=== PATIENT | female | born 1980 | race Caucasian/White ===

== ENCOUNTER 2019-07-28 05:50 | Emergency (ER) | payer SELFPAY ==
[~2019-07-28] VITALS: Ht 152.4 cm; Wt 68.2 kg
[2019-07-28 06:54] LABS: BILIRUBIN,URINE NEGATIVE (NEG); CLARITY,URINE CLEAR; COLOR,URINE YELLOW; NITRITE,URINE NEGATIVE (NEG); PROTEIN,URINE NEGATIVE (NEG-TRACE); UROBILINOGEN,URINE 0.2 mg/dL (0.2 mg/dL)
--- NOTE | 2019-07-28 06:54 | PHYS DOC ---
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 Patient states she didn't feel good for the last 48 hours and was sleeping all day. Patient complaining of generalized weakness with fuggy thinking and confusion with left upper extremity pain as a constant pain. Patient states she did not have any numbness of her arm yesterday morning and sleeping all day and last night had some numbness in her left arm. Patient states she had left arm numbness since this morning as a constant numbness without weakness. Patient states she has had chronic bilateral lower extremity weakness without change. Patient also complaining of numbness in left side of her face since this morning. Patient complaining of blurred vision without double vision and hurting all over. Patient denies cough, fever and chills, diarrhea and constipation. Patient states she didn't urinate like her usual last couple days and thinks she is dehydrated. Patient states she was in by her neurosurgeon [facility] about one year ago and had unremarkable CT of her brain. Review of Systems Review of Systems Constitutional: Denies fever or chills [] Eyes: Denies change in visual acuity, redness, or eye pain [] HENT: Denies nasal congestion or sore throat [] Respiratory: Denies cough or shortness of breath [] Cardiovascular: No additional information not addressed in HPI [] GI: Denies abdominal pain, nausea, vomiting, bloody stools or diarrhea [] : Denies dysuria or hematuria [] Musculoskeletal: Denies back pain or joint pain [] Integument: Denies rash or skin lesions [] Neurologic: Denies headache, focal weakness, reports sensory changes [] Endocrine: Denies polyuria or polydipsia [] All other systems were reviewed and found to be within normal limits, except as documented in this note. Current Medications Current Medications Current Medications Medications (Trade) Dose Ordered Sig/Gabriella Start Time Stop Time Status Last Admin Dose Admin Sodium Chloride 1,000 ml @ 1,000 mls/hr Q1H 07/28/19 07:00 07/28/19 07:59 DC 07/28/19 07:23 1,000 MLS/HR Allergies Allergies Allergies Coded Allergies Type Severity Reaction Last Updated Verified lorazepam Allergy Intermediate 07/28/19 Yes tramadol Allergy Intermediate 07/28/19 Yes Physical Exam Physical Exam Constitutional: Well developed, well nourished, mild distress, non-toxic appear ance. [] HENT: Normocephalic, atraumatic, bilateral external ears normal, oropharynx moist, no oral exudates, nose normal. [] Eyes: PERRLA, EOMI, conjunctiva normal, no discharge. [] Neck: Normal range of motion, no tenderness, supple, no stridor. [] Cardiovascular:Heart rate regular rhythm, no murmur [] Lungs & Thorax: Bilateral breath sounds clear to auscultation [] Abdomen: Bowel sounds normal, soft, no tenderness, no masses, no pulsatile masses. [] Skin: Warm, dry, no erythema, no rash. [] Back: No tenderness, no CVA tenderness. [] Extremities: No tenderness, no cyanosis, no clubbing, ROM intact, no edema. [] Neurologic: Alert and oriented X 3, normal motor function, subjective decreased sensation of left-sided face and left arm, no focal deficits noted. NIHS-1. Psychologic: Affect normal, judgement normal, mood normal. [] Current Patient Data Vital Signs Vital Signs Date Time Temp Pulse Resp B/P (MAP) Pulse Ox O2 Delivery O2 Flow Rate FiO2 07/28/19 08:27 72 18 155/99 (117) 100 Room Air 07/28/19 06:05 98.2 98.2 Lab Values Laboratory Tests Test 07/28/19 05:57 07/28/19 05:59 07/28/19 06:16 07/28/19 06:57 Urine Collection Type Void Urine Color Yellow Urine Clarity Clear Urine pH 6.0 Urine Specific Sargent 1.020 Urine Protein Negative mg/dL (NEG-TRACE) Urine Glucose (UA) Negative mg/dL (NEG) Urine Ketones (Stick) Negative mg/dL (NEG) Urine Blood Trace (NEG) Urine Nitrite Negative (NEG) Urine Bilirubin Negative (NEG) Urine Urobilinogen Dipstick 0.2 mg/dL (0.2 mg/dL) Urine Leukocyte Esterase Small (NEG) Urine RBC 3-5 /HPF (0-2) Urine WBC 5-10 /HPF (0-4) Urine Squamous Epithelial Cells Many /LPF Urine Bacteria Many /HPF (0-FEW) Urine Mucus Marked /LPF Urine Opiates Screen Neg (NEG) Urine Methadone Screen Neg (NEG) Urine Barbiturates Neg (NEG) Urine Phencyclidine Screen Neg (NEG) Urine Amphetamine/Methamphetamine Pos (NEG) Urine Benzodiazepines Screen Neg (NEG) Urine Cocaine Screen Neg (NEG) Urine Cannabinoids Screen Neg (NEG) Urine Ethyl Alcohol Neg (NEG) POC Urine HCG, Qualitative Hcg negative (Negative) Glucose (Fingerstick) 85 mg/dL (70-99) Prothrombin Time 13.0 SEC (11.7-14.0) Prothrombin Time INR 1.0 (0.8-1.1) Sodium Level 139 mmol/L (136-145) Potassium Level 4.0 mmol/L (3.5-5.1) Chloride Level 106 mmol/L (98-107) Carbon Dioxide Level 25 mmol/L (21-32) Anion Gap 8 (6-14) Blood Urea Nitrogen 10 mg/dL (7-20) Creatinine 0.8 mg/dL (0.6-1.0) Estimated GFR (Cockcroft-Gault) 79.4 BUN/Creatinine Ratio 13 (6-20) Glucose Level 91 mg/dL (70-99) Calcium Level 8.4 mg/dL (8.5-10.1) L Magnesium Level 1.8 mg/dL (1.8-2.4) Total Bilirubin 0.2 mg/dL (0.2-1.0) Aspartate Amino Transferase (AST) 17 U/L (15-37) Alanine Aminotransferase (ALT) 16 U/L (14-59) Alkaline Phosphatase 84 U/L (46-116) Creatine Kinase 54 U/L (26-192) Troponin I Quantitative < 0.017 ng/mL (0.000-0.055) Total Protein 6.6 g/dL (6.4-8.2) Albumin 3.2 g/dL (3.4-5.0) L Albumin/Globulin Ratio 0.9 (1.0-1.7) L Test 07/28/19 07:25 07/28/19 07:26 Influenza Type A Antigen Negative (NEGATIVE) Influenza Type B Antigen Negative (NEGATIVE) White Blood Count 6.4 x10^3/uL (4.0-11.0) Red Blood Count 4.81 x10^6/uL (3.50-5.40) Hemoglobin 14.1 g/dL (12.0-15.5) Hematocrit 41.1 % (36.0-47.0) Mean Corpuscular Volume 85 fL (79-100) Mean Corpuscular Hemoglobin 29 pg (25-35) Mean Corpuscular Hemoglobin Concent 34 g/dL (31-37) Red Cell Distribution Width 14.2 % (11.5-14.5) Platelet Count 301 x10^3/uL (140-400) Neutrophils (%) (Auto) 67 % (31-73) Lymphocytes (%) (Auto) 24 % (24-48) Monocytes (%) (Auto) 8 % (0-9) Eosinophils (%) (Auto) 2 % (0-3) Basophils (%) (Auto) 0 % (0-3) Neutrophils # (Auto) 4.2 x10^3/uL (1.8-7.7) Lymphocytes # (Auto) 1.5 x10^3/uL (1.0-4.8) Monocytes # (Auto) 0.5 x10^3/uL (0.0-1.1) Eosinophils # (Auto) 0.1 x10^3/uL (0.0-0.7) Basophils # (Auto) 0.0 x10^3/uL (0.0-0.2) Lactic Acid Level 1.1 mmol/L (0.4-2.0) KV-Kkd-H-Type Natriuretic Peptide 61 pg/mL (0-124) Laboratory Tests 07/28/19 07:26 Laboratory Tests 07/28/19 06:57 EKG EKG [] Radiology/Procedures Radiology/Procedures [facility] [address] [place] [address] IMAGING REPORT Signed PATIENT: JAVIER PERRY MACCOUNT: [id number] : 1980 LOCATION: ER AGE: 38 SEX: F EXAM STATUS: REG ER ORD. PHYSICIAN: ANDRES MILLS MD REASON: left arm numbness PROCEDURE: PORTABLE CHEST 1V PORTABLE CHEST 1V Clinical Indication: Left arm numbness. Comparison: None. Findings: The cardiomediastinal silhouette is normal. Linear opacity in the right midlung may be discoid atelectasis. Lungs are otherwise clear. There is no pneumothorax. No pleural effusion is appreciated. No acute bone abnormality. IMPRESSION: Minimal discoid atelectasis in the right midlung. Electronically signed by: Amol Alatorre MD (07/28/2019 7:05 AM) [id number] DICTATED and SIGNED BY: AMOL ALATORRE MD DATE: 07/28/19 0705 [facility] [address] [place] [address] IMAGING REPORT Signed PATIENT: JAVIER PERRY MACCOUNT: [id number] : 1980 LOCATION: ER AGE: 38 SEX: F EXAM STATUS: REG ER ORD. PHYSICIAN: ANDRES MILLS MD REASON: arm numbness PROCEDURE: CT HEAD WO CONTRAST CT head without contrast dated 07/28/2019. No comparison available. CLINICAL INDICATION: Arm numbness. Fatigue. Double vision. History of brain tumor. TECHNIQUE: Contiguous axial imaging the head was performed from skull base to vertex. No contrast administered. One or more of the following individualized dose reduction techniques were utilized for this examination: 1. Automated exposure control 2. Adjustment of the mA and/or kV according to patient size 3. Use of iterative reconstruction technique FINDINGS: Ventricles and sulci are within normal limits for age. No midline shift or mass effect. There is evidence of prior right frontotemporal craniotomy with small zone of encephalomalacia in the right frontal lobe. Brain parenchyma is otherwise of normal attenuation. No hemorrhage or extra-axial collection. Posterior fossa and brainstem unremarkable. Minimal mucosal thickening of the ethmoid and left maxillary sinuses. Mastoid air cells are clear. No acute calvarial abnormality. IMPRESSION: 1. No evidence of acute intracranial hemorrhage or mass. 2. Status post right frontotemporal craniotomy with small zone of encephalomalacia in the right frontal lobe. Electronically signed by: Rg Sarmiento MD (07/28/2019 7:51 AM) [id number] DICTATED and SIGNED BY: RG SARMIENTO MD DATE: 07/28/19 0751 Course & Med Decision Making Course & Med Decision Making Pertinent Labs and Imaging studies reviewed. (See chart for details) Evaluation of patient in ER showed 38-year-old female patient with history of brain tumor or surgery and complaining of not feeling good for a few days and left arm numbness for unknown time that getting worse today. Patient had mild subjective paresthesias of left upper extremity and left side of face. And had unremarkable labs and CT head and chest x-ray except for positive UDS for amphetamine and patient denied using any amphetamines. The patient has a mild UTI. Patient was advised to follow-up with neurologist and neurosurgeon for further evaluation. I've spoken with the patient and/or caregivers. I've explained the patient's condition, diagnosis and treatment plan based on information available to me at this time. I've answered the patient's and/or caregivers questions and addressed any concerns. The patient and/or caregivers have a good understanding the patient's diagnosis, condition and treatment plan as can be expected at this point. Vital signs have been stabilized. The patient's condition is stable for discharge from the emergency department. The patient will pursue further outpatient evaluation with her primary care provider or other designated consulting physician as outlined in the discharge instructions. Patient and/or caregivers are agreeable to this plan of care and follow-up instructions have been explained in detail. The patient and/or caregivers have received these instructions in written format and expressed understanding of these discharge instructions. The patient and her caregivers are aware that if any significant change in condition or worsening of symptoms should prompt him to immediately return to this of the closest emergency department. If an emergent department is not readily available I would encourage him to call 911. Papa Disclaimer Papa Disclaimer This electronic medical record was generated, in whole or in part, using a voice recognition dictation system. Departure Departure Impression: Primary Impression: Paresthesia Additional Impressions: UTI (urinary tract infection) Positive urine drug screen Generalized weakness Disposition: HOME, SELF-CARE (at 0815) Condition: STABLE Referrals: NO PCP (PCP) Patient Instructions: Paresthesia, Urinary Tract Infection Additional Instructions: Drink plenty of liquids Follow-up with your primary care physician in 3-5 days Return to ER if not getting better Follow-up with your neurologist and neurosurgeon Thank you for visiting [facility]. We appreciate you trusting us with your care. If any additional problems come up don't hesitate to return to visit us. Please follow up with your primary care provider so they can plan additional care if needed and know about the problem that you had. If symptoms worsen come back to the Emergency Department. Any concerning symptoms that start such as chest pain, shortness of air, weakness or numbness on one side of the body, running high fevers or any other concerning symptoms return to the ER. Scripts Ciprofloxacin Hcl (CIPRO) 250 Mg Tablet 1 TAB PO BID for infection, #6 TAB Prov: ANDRES MILLS MD 07/28/19 Thiamine Hcl (VITAMIN B-1) 100 Mg Tablet 1 TAB PO DAILY for 30 Days, #30 TAB 0 Refills Prov: ANDRES MILLS MD 07/28/19 NIHSS Stroke Scale NIH Stroke Scale: NIH Stroke Scale Response (Comments) Value Level of Consciousness: 0 Alert/Responsive 0 LOC Questions: 0 Answers both correctly 0 LOC Commands: 0 Performs both tasks 0 Best Gaze: 0 Normal 0 Visual: 0 No visual loss 0 Facial Palsy: 0 Normal, symmetrical 0 Motor - Left Arm 0 No drift 0 Motor - Right Arm 0 No drift 0 Motor - Left Leg 0 No drift 0 Motor: Right Leg 0 No drift 0 Limb Ataxia: 0 Absent 0 Sensory: 1 Mid to moderate loss 1 Best Language: 0 Normal 0 Dysathria: 0 Normal 0 Extinction and Inattention: 0 Normal 0 Total 1 Problem Qualifiers Additional Impressions: UTI (urinary tract infection) Urinary tract infection type: site unspecified Hematuria presence: with hematuria Qualified Codes: N39.0 - Urinary tract infection, site not specified; R31.9 - Hematuria, unspecified ANDRES MILLS MD Jul 28, 2019 06:54
[2019-07-28] MEDS ORDERED: IV NORMAL SALINE 1000ML BAG 1,000 ML IV SCH (07:00)
[2019-07-28 07:03] LABS: BACTERIA,URINE MANY /HPF (0-FEW); SQUAMOUS EPITHELIAL CELL,UR MANY /LPF
--- NOTE | 2019-07-28 07:08 | RAD ---
PORTABLE CHEST 1V Clinical Indication: Left arm numbness. Comparison: None. Findings: The cardiomediastinal silhouette is normal. Linear opacity in the right midlung may be discoid atelectasis. Lungs are otherwise clear. There is no pneumothorax. No pleural effusion is appreciated. No acute bone abnormality. IMPRESSION: Minimal discoid atelectasis in the right midlung. Electronically signed by: Amol Alatorre MD (07/28/2019 7:05 AM) [id number]
[2019-07-28 07:16] LABS: BARBITURATES NEG (NEG); BENZODIAZEPINES NEG (NEG); CANNABINOIDS NEG (NEG); COCAINE NEG (NEG); METHADONE NEG (NEG); OPIATES NEG (NEG); PHENCYCLIDINE NEG (NEG)
[2019-07-28 07:17] LABS: AMPHETAMINE/METHAMPHETAMINE POS (NEG)
[2019-07-28 07:17] LABS: CALCIUM 8.4 mg/dL (8.5-10.1); CREATININE 0.8 mg/dL (0.6-1.0); GFR 79.4
[2019-07-28 07:23] LABS: ALBUMIN 3.2 g/dL (3.4-5.0); ALBUMIN/GLOBULIN RATIO 0.9 (1.0-1.7); MAGNESIUM 1.8 mg/dL (1.8-2.4); TOTAL BILIRUBIN 0.2 mg/dL (0.2-1.0); TOTAL PROTEIN 6.6 g/dL (6.4-8.2)
[2019-07-28 07:53] LABS: BASO % 0 % (0-3); EOS # 0.1 x10^3/uL (0.0-0.7); EOS % 2 % (0-3); HEMATOCRIT 41.1 % (36.0-47.0); HEMOGLOBIN 14.1 g/dL (12.0-15.5); LYMPH # 1.5 x10^3/uL (1.0-4.8); LYMPH % 24 % (24-48); MEAN CORPUSCULAR HEMOGLOBIN 29 pg (25-35); MEAN CORPUSCULAR HGB CONC 34 g/dL (31-37); MEAN CORPUSCULAR VOLUME 85 fL (79-100); MONO # 0.5 x10^3/uL (0.0-1.1); MONO % 8 % (0-9); NEUT # 4.2 x10^3/uL (1.8-7.7); NEUT % 67 % (31-73); PLATELET COUNT 301 x10^3/uL (140-400); RED BLOOD COUNT 4.81 x10^6/uL (3.50-5.40); RED CELL DISTRIBUTION WIDTH 14.2 % (11.5-14.5); WHITE BLOOD COUNT 6.4 x10^3/uL (4.0-11.0)
--- NOTE | 2019-07-28 07:54 | RAD ---
CT head without contrast dated 07/28/2019. No comparison available. CLINICAL INDICATION: Arm numbness. Fatigue. Double vision. History of brain tumor. TECHNIQUE: Contiguous axial imaging the head was performed from skull base to vertex. No contrast administered. One or more of the following individualized dose reduction techniques were utilized for this examination: 1. Automated exposure control 2. Adjustment of the mA and/or kV according to patient size 3. Use of iterative reconstruction technique FINDINGS: Ventricles and sulci are within normal limits for age. No midline shift or mass effect. There is evidence of prior right frontotemporal craniotomy with small zone of encephalomalacia in the right frontal lobe. Brain parenchyma is otherwise of normal attenuation. No hemorrhage or extra-axial collection. Posterior fossa and brainstem unremarkable. Minimal mucosal thickening of the ethmoid and left maxillary sinuses. Mastoid air cells are clear. No acute calvarial abnormality. IMPRESSION: 1. No evidence of acute intracranial hemorrhage or mass. 2. Status post right frontotemporal craniotomy with small zone of encephalomalacia in the right frontal lobe. Electronically signed by: Rg Sarmiento MD (07/28/2019 7:51 AM) [id number]
--- NOTE | 2019-07-28 07:58 | EKG ---
[facility] [address] [place] [address] Test Date: 2019-07-28 Test Time: 06:12:19 Pat Name: JAVIER PERRY Department: Room: Gender: F [employer]: : 1980 Requested By: ANDRES MILLS Order Number: [id number] Reading MD: Measurements Intervals [place] Rate: 71 P: 24 SD: 124 QRS: 24 QRSD: 80 T: 16 QT: 404 QTc: 443 Interpretive Statements SINUS RHYTHM NORMAL ECG No previous ECG available for comparison
[2019-07-28 08:01] LABS: INFLUENZA A PATIENT NEGATIVE (NEGATIVE); INFLUENZA B PATIENT NEGATIVE (NEGATIVE)
[2019-07-28] MEDS ORDERED: THIA100T57 PO (08:17)
[2019-07-28] MEDS ORDERED: CIPR250T30 PO (08:17)
[2019-07-28 08:27] VITALS: BP 155/99
== END 2019-07-28 08:27 | disposition home or self-care (01) ==
LOC: ER 05:50
DX: N39.0 Urinary tract infection, site not specified (principal); R31.9 Hematuria, unspecified; R20.0 Anesthesia of skin; R55 Syncope and collapse; R53.1 Weakness; R82.5 Elevated urine levels of drugs, medicaments and biological substances; E11.9 Type 2 diabetes mellitus without complications; I10 Essential (primary) hypertension; Z98.51 Tubal ligation status; Z98.890 Other specified postprocedural states
CPT/HCPCS: 36415; 70450; 71045; 80053; 80307; 81001; 81025; 82550; 82962; 83605; 83735; 83880; 84484; 85025; 85610; 87086; 87804; 93005; 96360; 99285; J7030

== ENCOUNTER 2020-07-31 11:44 | Emergency (ER) | payer SELFPAY ==
[~2020-07-31 11:44] MED LIST: CIPR250T30 PO; THIA100T57 PO
--- NOTE | 2020-07-31 16:18 | PHYS DOC ---
Past Medical History Past Medical History: Diabetes-Type II, Hypertension, Other Additional Past Medical Histor: BRAIN TUMORS, VASCULAR NECROSIS OF BILATERAL LEGS Past Surgical History: Tubal ligation, Other Additional Past Surgical Histo: BRAIN TUMOR REMOVAL, BLADDER SURGERY Smoking Status: Never Smoker Alcohol Use: None General Adult HPI: HPI: Patient is a 39 year old female presents to the emergency department stating her primary care doctor Nina EMANUEL sent her here to have an MRI and to be admitted. Patient said that she seen him last and he recommended admi ssion to the hospital but she needed to go see her grandsons birthday instead, stating that he said this was okay and when she came back in the town to come to the hospital to be admitted. Patient states that for the past 3 days she has been feeling confused and seeing spots and floaters in front of her eyes. Patient states that this morning she woke up with a pressure type headache behind both of her eyes that she rates a 10/10 on a 1-10 pain scale. Patient states that she takes Percocet for chronic aches and pains which she took 1 tablet this morning and did not do anything for her headache/pressure pain. Patient also reports that she feels as if her equilibrium is off. Patient reports nausea, denies vomiting. Patient denies any abdominal pains, diarrhea or constipation. Patient denies chest pain, chest congestion, nasal congestion. Patient denies any recent illnesses. Patient denies any rashes of her skin. Denies loss of taste or loss of smell. Patient states that she had brain surgery to have tumors removed 2 years ago at [facility] in [facility] by a doctor [place]. Patient states that she seen her doctor last week and was told that she had changes in her brain scan however denies having any CAT scans or imaging of her head done recently. Patient reports history of high blood pressure, and diabetes. Patient states that she used to take insulin however since her brain surgery she has not needed to take any insulin and her diabetes is now diet controlled. Patient denies any other physical complaints or physical concerns. Patient reports a past surgical history of brain tumors removed 2 years ago, tubal ligation in 2000, gallbladder removed 5 years ago, her last menstrual period ended yesterday. Review of Systems: Review of Systems: 14 body systems of review of systems have been reviewed. See HPI for pertinent positives and negative responses, otherwise all other systems are negative, nonpertinent or noncontributory. Heart Score: Risk Factors: Risk Factors: DM, Current or recent (<one month) smoker, HTN, HLP, family history of CAD, obesity. Risk Scores: Score 0 - 3: 2.5% MACE over next 6 weeks - Discharge Home Score 4 - 6: 20.3% MACE over next 6 weeks - Admit for Clinical Observation Score 7 - 10: 72.7% MACE over next 6 weeks - Early Invasive Strategies Current Medications: Patient reports taking 10 mg lisinopril daily, 4 mg Zofran as needed nausea, 0.5 mg lorazepam daily, Percocet 10 mg / 325 mg as needed pain, a cholesterol medication 20 mg daily, vitamin D daily. Allergies: Allergies: Allergies Coded Allergies Type Severity Reaction Last Updated Verified lorazepam Allergy Intermediate 07/28/19 Yes tramadol Allergy Intermediate 07/28/19 Yes Physical Exam: PE: Constitutional: Well developed, well nourished, no acute distress, non-toxic appearance. Patient was eating chips and other snacks when entered room for physical examination. Patient is in no apparent distress. HENT: Normocephalic, atraumatic, bilateral external ears normal, oropharynx moist, no oral exudates, nose normal. Eyes: PERRLA, EOMI, conjunctiva normal, no discharge. Neck: Normal range of motion, no tenderness, supple, no stridor. Cardiovascular:Heart rate regular rhythm, no murmur, heart sounds S1-S2 to auscultation. Lungs & Thorax: Bilateral breath sounds clear to auscultation all lung [place]. Abdomen: Bowel sounds normal, soft, no tenderness, no masses, no pulsatile masses. Skin: Warm, dry, no erythema, no rash. Back: No tenderness, no CVA tenderness. Extremities: No tenderness, no cyanosis, no clubbing, ROM intact, no edema. Neurologic: Alert and oriented X 3, normal motor function, normal sensory function, no focal deficits noted. Cerebellar motor function intact, patient complained of dizziness during Pengilly-Hallpike maneuver, however no nystagmus appreciated. Psychologic: Affect normal, judgement normal, mood normal. Current Patient Data: Labs: Laboratory Tests Test 07/31/20 16:25 White Blood Count 8.7 x10^3/uL Red Blood Count 4.78 x10^6/uL Hemoglobin 13.9 g/dL Hematocrit 41.2 % Mean Corpuscular Volume 86 fL Mean Corpuscular Hemoglobin 29 pg Mean Corpuscular Hemoglobin Concent 34 g/dL Red Cell Distribution Width 14.8 % Platelet Count 289 x10^3/uL Neutrophils (%) (Auto) 67 % Lymphocytes (%) (Auto) 26 % Monocytes (%) (Auto) 6 % Eosinophils (%) (Auto) 1 % Basophils (%) (Auto) 1 % Neutrophils # (Auto) 5.8 x10^3/uL Lymphocytes # (Auto) 2.2 x10^3/uL Monocytes # (Auto) 0.5 x10^3/uL Eosinophils # (Auto) 0.1 x10^3/uL Basophils # (Auto) 0.0 x10^3/uL Urine Collection Type Unknown Urine Color Yellow Urine Clarity Clear Urine pH 5.5 Urine Specific [place] 1.020 Urine Protein Negative mg/dL Urine Glucose (UA) Negative mg/dL Urine Ketones (Stick) Negative mg/dL Urine Blood Large Urine Nitrite Negative Urine Bilirubin Negative Urine Urobilinogen Dipstick 0.2 mg/dL Urine Leukocyte Esterase Trace Urine RBC 3-5 /HPF Urine WBC Occ /HPF Urine Squamous Epithelial Cells Few /LPF Urine Bacteria 0 /HPF Sodium Level 139 mmol/L Potassium Level 3.4 mmol/L Chloride Level 103 mmol/L Carbon Dioxide Level 24 mmol/L Anion Gap 12 Blood Urea Nitrogen 11 mg/dL Creatinine 0.9 mg/dL Estimated GFR (Cockcroft-Gault) 69.0 BUN/Creatinine Ratio 12 Glucose Level 99 mg/dL Calcium Level 8.5 mg/dL Total Bilirubin 0.4 mg/dL Aspartate Amino Transf (AST/SGOT) 26 U/L Alanine Aminotransferase (ALT/SGPT) 63 U/L Alkaline Phosphatase 101 U/L Total Protein 6.9 g/dL Albumin 3.2 g/dL Albumin/Globulin Ratio 0.9 Urine Opiates Screen Pos Urine Methadone Screen Neg Urine Barbiturates Neg Urine Phencyclidine Screen Neg Urine Amphetamine/Methamphetamine Neg Urine Benzodiazepines Screen Pos Urine Cocaine Screen Neg Urine Cannabinoids Screen Neg Urine Ethyl Alcohol Neg Current Medications Medications (Trade) Dose Ordered Sig/Gabriella Route PRN Reason Start Time Stop Time Status Last Admin Dose Admin Ondansetron HCl (Zofran) 4 mg 1X ONCE IVP 07/31/20 16:30 07/31/20 16:31 DC Ketorolac Tromethamine (Toradol 30mg Vial) 30 mg 1X ONCE IVP 07/31/20 16:30 07/31/20 16:31 DC 07/31/20 17:06 Diphenhydramine HCl (Benadryl) 25 mg 1X ONCE IVP 07/31/20 16:30 07/31/20 16:31 DC 07/31/20 17:05 Metoclopramide HCl (Reglan Vial) 10 mg 1X ONCE IVP 07/31/20 16:30 07/31/20 16:31 DC 07/31/20 17:05 Sodium Chloride 1,000 ml @ 1,000 mls/hr 1X ONCE IV 07/31/20 16:30 07/31/20 17:29 DC 07/31/20 17:05 EKG: EK by ED nursing staff, shows a normal sinus rhythm without ectopy heart rate at 76 bpm, IA interval 0.130, QTc interval 0.503, no acute STEMI, no ACS, no acute ischemia appreciated, EKG interpreted by ED attending physician Dr. Chawla. Radiology/Procedures: Radiology/Procedures: Note dates of head CT studies, I have attached both today's and last study from 07/28/2019 PATIENT: JAVIER PERRY MACCOUNT: [id number] : 1980 LOCATION: ER AGE: 38 SEX: F EXAM STATUS: REG ER ORD. PHYSICIAN: ANDRES MILLS MD REASON: arm numbness PROCEDURE: CT HEAD WO CONTRAST CT head without contrast dated 07/28/2019. No comparison available. CLINICAL INDICATION: Arm numbness. Fatigue. Double vision. History of brain tumor. TECHNIQUE: Contiguous axial imaging the head was performed from skull base to vertex. No contrast administered. One or more of the following individualized dose reduction techniques were utilized for this examination: 1. Automated exposure control 2. Adjustment of the mA and/or kV according to patient size 3. Use of iterative reconstruction technique FINDINGS: Ventricles and sulci are within normal limits for age. No midline shift or mass effect. There is evidence of prior right frontotemporal craniotomy with small zone of encephalomalacia in the right frontal lobe. Brain parenchyma is otherwise of normal attenuation. No hemorrhage or extra-axial collection. Posterior fossa and brainstem unremarkable. Minimal mucosal thickening of the ethmoid and left maxillary sinuses. Mastoid air cells are clear. No acute calvarial abnormality. IMPRESSION: 1. No evidence of acute intracranial hemorrhage or mass. 2. Status post right frontotemporal craniotomy with small zone of encephalomalacia in the right frontal lobe. Electronically signed by: Rg Sarmiento MD (07/28/2019 7:51 AM) [id number] DICTATED and SIGNED BY: RG SARMIENTO MD DATE: 07/28/19 0751 PATIENT: JAVIER PERRY MACCOUNT: [id number] : 1980 LOCATION: ER AGE: 39 SEX: F EXAM STATUS: REG ER ORD. PHYSICIAN: RG ROTHMAN APRN REASON: BLURRED VISION PROCEDURE: CT HEAD WO CONTRAST PQRS Compliance Statement: One or more of the following individualized dose reduction techniques were utilized for this examination: 1. Automated exposure control 2. Adjustment of the mA and/or kV according to patient size 3. Use of iterative reconstruction technique CT head without contrast 07/31/2020 4:17 PM INDICATION: Blurred vision COMPARISON: CT head 07/28/2019 TECHNIQUE: Multiple axial CT images of the head were obtained from skull base through the vertex without intravenous contrast. FINDINGS: Head: Ventricles, sulci and basal cisterns are within normal limits. Right frontal craniotomy changes are present with subjacent hypoattenuation which may reflect gliosis. Findings are stable from the prior examination. No acute intracranial hemorrhage. There is no hydrocephalus. Mack-white matter differentiation is nor mal. There is no acute intracranial hemorrhage. There is no mass, mass effect or midline shift. Posterior fossa is normal in appearance. Visualized portions of the orbits are normal. Paranasal sinuses are well aerated. Mastoid air cells are well aerated. Scalp and calvaria are normal. IMPRESSION: No acute intracranial hemorrhage. Right frontal craniotomy changes are identified with subjacent focal hypoattenuation stable from 07/28/2019. Consideration may be given for gliosis versus residual edema. Correlate with surgical history. Comparison with any prior MR imaging could be of benefit if available. Electronically signed by: Iman Prado MD (07/31/2020 4:36 PM) [id number] DICTATED and SIGNED BY: IMAN PRADO MD DATE: 07/31/20 [id number] 0 Course & Med Decision Making: Course & Med Decision Making Pertinent Labs and Imaging studies reviewed. (See chart for details) 39-year-old female, vital signs reviewed, presents to the ER stating that she is here to be admitted and have an MRI. Patient's physical examination was unremarkable however during the Pengilly-Hallpike maneuver patient did complain of dizziness but no nystagmus appreciated. ED work-up initiated, plan: Orthostatic vital signs, headache cocktail, serum labs, EKG, CT head without contrast. Pending results, will contact patient primary care physician partner Dr. Carter to review patient case with possible admission to hospital. Patient's serum labs unremarkable, CT head showed equivocal findings when compared to previous CT head from July 2019. Discussed findings with patient, patient's reexamination remains unremarkable, patient states her headache/head pressure has resolved and she is feeling better now. Discussed case with Dr. Carter, given information he received admission was not recommended. Discussed findings with patient who was adamant that her primary care physician sent her here to be admitted. Page placed out to patient's primary care physician Dr. EMANUEL, awaiting return call at this time. Discussed case with Dr. EMANUEL who recommended patient be discharged home and he would follow-up with her in the office tomorrow. Discussed findings and Dr. EMANUEL'S recommendations, patient gave verbal understanding of discharge home instructions, follow-up with primary care tomorrow, return to the emergency department precautions and concerns, had no further questions or concerns and was discharged home without incident. Dragon Disclaimer: Dragon Disclaimer: This electronic medical record was generated, in whole or in part, using a voice recognition dictation system. Departure Departure Impression: Primary Impression: Headache Qualified Codes: R51.9 - Headache, unspecified Disposition: 01 DC HOME SELF CARE/HOMELESS Condition: GOOD Referrals: MATTIE EMANUEL MD Additional Instructions: Please take your home medications as directed by your primary care doctor, I spoke with Dr. Emanuel today, he recommended you come see him in the office tomorrow for further evaluation. Please return to the emergency department for worsening symptoms or other concerns. EMERGENCY DEPARTMENT GENERAL DISCHARGE INSTRUCTIONS Thank you for coming to [facility] Emergency Department (ED) today and trusting us with you care. We trust that you had a positive experience in our Emergency Department. If you wish to speak to the department management, you may call the Director at [phone]. YOUR FOLLOW UP INSTRUCTIONS ARE FOLLOWS: 1. Do you have a private Doctor? If you do not have a private doctor, please ask for a resource list of physicians or clinics that may be able to assist you with follow up care. 2. The Emergency Physicain has interpreted your x-rays. The X-Ray specialist will also review them. If there is a change in the findings, you will be notified in 48 hours when at all possible. 3. A lab test or culture has been done, your results will be reviewed and you w ill be notified if you need a change in treatment. ADDITIONAL INSTRUCTIONS AND INFORMATION: 1. Your care today has been supervised by a physician who is specially trained in emergency care. Many problems require more than one evaluation for a complete diagnosis and treatment. We recommend that you schedule your follow up appointment as recommended to ensure complete treatment of you illness or injury. If you are unable to obtain follow up care and continue to have a problem, or if your condition worsens, we recommend that you return to the ED. 2. We are not able to safely determine your condition over the phone nor are we able to give sound medical advice over the phone. For these safety reasons, if you call for medical advice we will ask you to come to the ED for further evaluation. 3. If you have any questions regarding these discharge instructions please call the ED at [phone]. SAFETY INFORMATION: In the interest of safety, wellness, and injury prevention; we encourage you to wear your sealbelt, if you smoke; quite smoking, and we encourage family to use a protective helmet for bicycling and other sporting events that present an increased risk for head injury. IF YOUR SYMPTOMS WORSEN OR NEW SYMPTOMS DEVELOP, OR YOU HAVE CONCERNS ABOUT YOUR CONDITION; OR IF YOUR CONDITION WORSENS WHILE YOU ARE WAITING FOR YOUR FOLLOW UP APPOINTMENT; EITHER CONTACT YOUR PRIMARY CARE DOCTOR, THE PHYSICIAN WHOSE NAME AND NUMBER YOU WERE GIVEN, OR RETURN TO THE ED IMMEDIATELY. RG ROTHMAN APRN Jul 31, 2020 16:18
[2020-07-31] MEDS ORDERED: ONDANSETRON PF 4 MG/2 ML VIAL. IVP ONE (16:30)
[2020-07-31] MEDS ORDERED: KETOROLAC 30 MG/ML VIAL. IVP ONE (16:30)
[2020-07-31] MEDS ORDERED: METOCLOPRAMIDE HCL 10 MG/2 ML VIAL. IVP ONE (16:30)
[2020-07-31] MEDS ORDERED: diphenhydrAMINE 50 MG/ML VIAL IVP ONE (16:30)
[2020-07-31] MEDS ORDERED: IV NORMAL SALINE 1000ML BAG 1,000 ML IV ONE (16:30)
--- NOTE | 2020-07-31 16:39 | RAD ---
PQRS Compliance Statement: One or more of the following individualized dose reduction techniques were utilized for this examinat ion: 1. Automated exposure control 2. Adjustment of the mA and/or kV according to patient size 3. Use of iterative reconstruction technique CT head without contrast 07/31/2020 4:17 PM INDICATION: Blurred vision COMPARISON: CT head 07/28/2019 TECHNIQUE: Multiple axial CT images of the head were obtained from skull base through the vertex with out intravenous contrast. FINDINGS: Head: Ventricles, sulci and basal cisterns are within normal limits. Right frontal craniotomy changes are p resent with subjacent hypoattenuation which may reflect gliosis. Findings are stable from the prior e xamination. No acute intracranial hemorrhage. There is no hydrocephalus. Mack-white matter differenti ation is normal. There is no acute intracranial hemorrhage. There is no mass, mass effect or midline shift. Posterior fossa is normal in appearance. Visualized portions of the orbits are normal. Paranasal sinuses are well aerated. Mastoid air cells a re well aerated. Scalp and calvaria are normal. IMPRESSION: No acute intracranial hemorrhage. Right frontal craniotomy changes are identified with subjacent focal hypoattenuation stable from 07/28. Consideration may be given for gliosis versus residual edema. Correlate with surgical history. Comparison with any prior MR imaging could be of benefit if available. Electronically signed by: Orly Rodriguez MD (07/31/2020 4:36 PM) [id number]
[2020-07-31 16:57] LABS: BASO % 1 % (0-3); BILIRUBIN,URINE NEGATIVE (NEG); CLARITY,URINE CLEAR; COLOR,URINE YELLOW; EOS # 0.1 x10^3/uL (0.0-0.7); EOS % 1 % (0-3); HEMATOCRIT 41.2 % (36.0-47.0); HEMOGLOBIN 13.9 g/dL (12.0-15.5); LYMPH # 2.2 x10^3/uL (1.0-4.8); LYMPH % 26 % (24-48); MEAN CORPUSCULAR HEMOGLOBIN 29 pg (25-35); MEAN CORPUSCULAR HGB CONC 34 g/dL (31-37); MEAN CORPUSCULAR VOLUME 86 fL (79-100); MONO # 0.5 x10^3/uL (0.0-1.1); MONO % 6 % (0-9); NEUT # 5.8 x10^3/uL (1.8-7.7); NEUT % 67 % (31-73); NITRITE,URINE NEGATIVE (NEG); PH,URINE 5.5 (<5.0-8.0); PLATELET COUNT 289 x10^3/uL (140-400); PROTEIN,URINE NEGATIVE (NEG-TRACE); RED BLOOD COUNT 4.78 x10^6/uL (3.50-5.40); RED CELL DISTRIBUTION WIDTH 14.8 % (11.5-14.5); UROBILINOGEN,URINE 0.2 mg/dL (0.2 mg/dL); WHITE BLOOD COUNT 8.7 x10^3/uL (4.0-11.0)
[2020-07-31 17:08] LABS: BACTERIA,URINE 0 /HPF (0-FEW); WBC,URINE OCC /HPF (0-4)
[2020-07-31 17:13] LABS: CALCIUM 8.5 mg/dL (8.5-10.1); CREATININE 0.9 mg/dL (0.6-1.0); POTASSIUM 3.4 mmol/L (3.5-5.1)
[2020-07-31 17:17] LABS: ALBUMIN 3.2 g/dL (3.4-5.0); ALBUMIN/GLOBULIN RATIO 0.9 (1.0-1.7); TOTAL BILIRUBIN 0.4 mg/dL (0.2-1.0); TOTAL PROTEIN 6.9 g/dL (6.4-8.2)
[2020-07-31 18:01] LABS: BARBITURATES NEG (NEG); BENZODIAZEPINES POS (NEG); CANNABINOIDS NEG (NEG); COCAINE NEG (NEG); METHADONE NEG (NEG); OPIATES POS (NEG); PHENCYCLIDINE NEG (NEG)
[2020-07-31 18:02] LABS: AMPHETAMINE/METHAMPHETAMINE NEG (NEG)
[2020-07-31] MEDS ORDERED: fentaNYL PF VIAL 100 MCG/2 ML VIAL IVP ONE (19:00)
--- NOTE | 2020-07-31 20:28 | EKG ---
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
== END 2020-07-31 20:00 | disposition home or self-care (01) ==
LOC: ER 11:44
DX: R51.9 Headache, unspecified (principal); R41.0 Disorientation, unspecified; E11.9 Type 2 diabetes mellitus without complications; I10 Essential (primary) hypertension; Z98.51 Tubal ligation status; Z98.890 Other specified postprocedural states
CPT/HCPCS: 36415; 70450; 80053; 80307; 81001; 85025; 87086; 93005; 96361; 96374; 96375; 99285; J1200; J1885; J2765; J3010; J7030

== ENCOUNTER 2020-11-04 22:47 | Emergency (ER) | payer MEDICAID ==
[~2020-11-04] VITALS: Ht 165.1 cm; Wt 75.0 kg
[2020-11-04 23:36] LABS: BILIRUBIN,URINE NEGATIVE (NEG); CLARITY,URINE TURBID; COLOR,URINE YELLOW; NITRITE,URINE NEGATIVE (NEG); PROTEIN,URINE NEGATIVE (NEG-TRACE); UROBILINOGEN,URINE 0.2 mg/dL (0.2 mg/dL)
[2020-11-04 23:43] LABS: BACTERIA,URINE 0 /HPF (0-FEW); RBC,URINE 0 /HPF (0-2)
[2020-11-05 01:21] LABS: BASO % 0 % (0-3); EOS # 0.1 x10^3/uL (0.0-0.7); EOS % 1 % (0-3); HEMATOCRIT 39.6 % (36.0-47.0); HEMOGLOBIN 13.5 g/dL (12.0-15.5); LYMPH # 1.9 x10^3/uL (1.0-4.8); LYMPH % 27 % (24-48); MEAN CORPUSCULAR HEMOGLOBIN 29 pg (25-35); MEAN CORPUSCULAR HGB CONC 34 g/dL (31-37); MEAN CORPUSCULAR VOLUME 85 fL (79-100); MONO # 0.6 x10^3/uL (0.0-1.1); MONO % 9 % (0-9); NEUT # 4.5 x10^3/uL (1.8-7.7); NEUT % 63 % (31-73); PLATELET COUNT 282 x10^3/uL (140-400); RED BLOOD COUNT 4.64 x10^6/uL (3.50-5.40); RED CELL DISTRIBUTION WIDTH 13.5 % (11.5-14.5); WHITE BLOOD COUNT 7.1 x10^3/uL (4.0-11.0)
[2020-11-05] MEDS ORDERED: ONDANSETRON PF 4 MG/2 ML VIAL. IVP ONE (01:30)
[2020-11-05] MEDS ORDERED: IV NORMAL SALINE 1000ML BAG 1,000 ML IV ONE (01:30)
[2020-11-05 01:31] LABS: CALCIUM 8.7 mg/dL (8.5-10.1); CREATININE 0.9 mg/dL (0.6-1.0); GFR 68.7; POTASSIUM 4.3 mmol/L (3.5-5.1)
--- NOTE | 2020-11-05 01:36 | PHYS DOC ---
Past Medical History Past Medical History: Diabetes-Type II, Hypertension, Other Additional Past Medical Histor: BRAIN TUMORS, VASCULAR NECROSIS OF BILATERAL LEGS Past Surgical History: Tubal ligation, Other Additional Past Surgical Histo: BRAIN TUMOR REMOVAL, BLADDER SURGERY Smoking Status: Never Smoker Alcohol Use: None General Adult EDM: Chief Complaint: NAUSEA/VOMITING/DIARRHEA HPI: HPI: Patient is a 40 year old female past medical history hypertension diabetes and history of brain tumor presents with the chief complaint of dizziness/lightheaded with nausea and vomiting. Patient states dizziness/lightheaded nausea and vomiting have been ongoing x 1 week. Over the last 3 days patient states she has had blurry vision. She denies any chest pain or shortness of breath. Patient states current symptoms are similar to when she was diagnosed with brain tumors. Patient state he has had brain surgery to removed 2 tumors. Review of Systems: Review of Systems: Constitutional: Denies fever or chills. [] Eyes: Denies change in visual acuity. [] HENT: Denies nasal congestion or sore throat. [] Respiratory: Denies cough or shortness of breath. [] Cardiovascular: Denies chest pain or edema. [] GI: Denies abdominal pain, , bloody stools or diarrhea. [Positive nausea, vomiting] : Denies dysuria. [] Musculoskeletal: Denies back pain or joint pain. [] Integument: Denies rash. [] Neurologic: Denies headache, focal weakness or sensory changes. [Positive dizziness] Endocrine: Denies polyuria or polydipsia. [] Lymphatic: Denies swollen glands. [] Psychiatric: Denies depression or anxiety. [] Heart Score: C/O Chest Pain: N/A Risk Factors: Risk Factors: DM, Current or recent (<one month) smoker, HTN, HLP, family history of CAD, obesity. Risk Scores: Score 0 - 3: 2.5% MACE over next 6 weeks - Discharge Home Score 4 - 6: 20.3% MACE over next 6 weeks - Admit for Clinical Observation Score 7 - 10: 72.7% MACE over next 6 weeks - Early Invasive Strategies Current Medications: Current Medications Medications (Trade) Dose Ordered Sig/Gabriella Start Time Stop Time Status Last Admin Dose Admin Ondansetron HCl (Zofran) 4 mg 1X ONCE 11/05/20 01:30 11/05/20 01:31 11/05/20 01:25 4 MG Sodium Chloride 1,000 ml @ 1,000 mls/hr 1X ONCE 11/05/20 01:30 11/05/20 02:29 11/05/20 01:22 1,000 MLS/HR Allergies: Allergies: Allergies Coded Allergies Type Severity Reaction Last Updated Verified lorazepam Allergy Intermediate 07/28/19 Yes tramadol Allergy Intermediate 07/28/19 Yes Physical Exam: PE: Constitutional: Well developed, well nourished, no acute distress, non-toxic appearance. [] HENT: Normocephalic, atraumatic, bilateral external ears normal, oropharynx moist, no oral exudates, nose normal. [] Eyes: PERRLA, EOMI, conjunctiva normal, no discharge. [] Neck: Normal range of motion, no tenderness, supple, no stridor. [] Cardiovascular:Heart rate regular rhythm, no murmur [] Lungs & Thorax: Bilateral breath sounds clear to auscultation [] Abdomen: Bowel sounds normal, soft, no tenderness, no masses, no pulsatile masses. [] Skin: Warm, dry, no erythema, no rash. [] Back: No tenderness, no CVA tenderness. [] Extremities: No tenderness, no cyanosis, no clubbing, ROM intact, no edema. [] Neurologic: Alert and oriented X 3, normal motor function, normal sensory function, no focal deficits noted. [] Psychologic: Affect normal, judgement normal, mood normal. [] Current Patient Data: Labs: Laboratory Tests Test 11/04/20 23:00 11/04/20 23:02 11/05/20 01:05 Urine Collection Type Unknown Urine Color Yellow Urine Clarity Turbid Urine pH 5.0 (<5.0-8.0) Urine Specific Novinger 1.025 (1.000-1.030) Urine Protein Negative mg/dL (NEG-TRACE) Urine Glucose (UA) Negative mg/dL (NEG) Urine Ketones (Stick) Negative mg/dL (NEG) Urine Blood Negative (NEG) Urine Nitrite Negative (NEG) Urine Bilirubin Negative (NEG) Urine Urobilinogen Dipstick 0.2 mg/dL (0.2 mg/dL) Urine Leukocyte Esterase Negative (NEG) Urine RBC 0 /HPF (0-2) Urine WBC 1-4 /HPF (0-4) Urine Squamous Epithelial Cells Mod /LPF Urine Bacteria 0 /HPF (0-FEW) Urine Mucus Mod /LPF POC Urine HCG, Qualitative Hcg negative (Negative) White Blood Count 7.1 x10^3/uL (4.0-11.0) Red Blood Count 4.64 x10^6/uL (3.50-5.40) Hemoglobin 13.5 g/dL (12.0-15.5) Hematocrit 39.6 % (36.0-47.0) Mean Corpuscular Volume 85 fL (79-100) Mean Corpuscular Hemoglobin 29 pg (25-35) Mean Corpuscular Hemoglobin Concent 34 g/dL (31-37) Red Cell Distribution Width 13.5 % (11.5-14.5) Platelet Count 282 x10^3/uL (140-400) Neutrophils (%) (Auto) 63 % (31-73) Lymphocytes (%) (Auto) 27 % (24-48) Monocytes (%) (Auto) 9 % (0-9) Eosinophils (%) (Auto) 1 % (0-3) Basophils (%) (Auto) 0 % (0-3) Neutrophils # (Auto) 4.5 x10^3/uL (1.8-7.7) Lymphocytes # (Auto) 1.9 x10^3/uL (1.0-4.8) Monocytes # (Auto) 0.6 x10^3/uL (0.0-1.1) Eosinophils # (Auto) 0.1 x10^3/uL (0.0-0.7) Basophils # (Auto) 0.0 x10^3/uL (0.0-0.2) Laboratory Tests 11/05/20 01:05 Vital Signs: Vital Signs Date Time Temp Pulse Resp B/P (MAP) Pulse Ox O2 Delivery O2 Flow Rate FiO2 11/05/20 00:20 98.5 78 16 154/95 (114) 98 Room Air 98.5 EKG: EKG: [] EKG performed at 0102 hrs. heart rate [address] elevation no ST depression no acute IN Radiology/Procedures: Radiology/Procedures: [] Impression: CT Head W/O Contrast: History: Reason: hx brain tumors, n/v visual changes / Spl. Instructions: / History: Comparison: none Axial images were obtained without contrast. There is prior right temporal frontal craniotomy. There is a small area of encephalomalacia in the right frontal lobe above the sylvian fissure. The sweeney and white matter appears normal and symmetrical for the patients age. There is no mass effect, extraaxial fluid collections or hydrocephalus. There is no gross bleed. There is no focal loss of sweeney-white matter distinction to suggest acute ischemia, i.e. stroke. Impression: Prior right-sided craniotomy. No acute findings. End impression PQRS Compliance Statement: Course & Med Decision Making: Course & Med Decision Making Pertinent Labs and Imaging studies reviewed. (See chart for details) [] Patient was evaluated for chief complaint. Work-up consisted of laboratory analysis and radiologic imaging. Results reviewed and discussed with patient. CT imaging no acute abnormalities. Patient's lab work was within normal limits. Patient had an EKG that showed no acute ischemic changes. Treatment included IV fluids and Zofran. Patient without any episodes of vomiting in the emergency department. Patient discharged home with prescription Zofran Dragon Disclaimer: Dragon Disclaimer: This electronic medical record was generated, in whole or in part, using a voice recognition dictation system. Departure Departure Impression: Primary Impression: Dizziness Additional Impression: Nausea & vomiting Disposition: 01 HOME / SELF CARE / HOMELESS Condition: STABLE Referrals: MATTIE ELIZABETH MD (PCP) Patient Instructions: Dizziness, Nausea and Vomiting Scripts Ondansetron Hcl (ZOFRAN) 4 Mg Tablet 1 TAB PO Q6HRS, #20 TAB Prov: SOPHY MTZ DO 11/05/20 SOPHY MTZ DO November 05, 2020 01:36
[2020-11-05 01:37] LABS: ALBUMIN 3.4 g/dL (3.4-5.0); TOTAL BILIRUBIN 0.2 mg/dL (0.2-1.0); TOTAL PROTEIN 6.9 g/dL (6.4-8.2)
--- NOTE | 2020-11-05 01:53 | EKG ---
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
--- NOTE | 2020-11-05 02:10 | RAD ---
CT Head W/O Contrast: History: Reason: hx brain tumors, n/v visual changes / Spl. Instructions: / History: Comparison: none Axial images were obtained without contrast. There is prior right temporal frontal craniotomy. There is a small area of encephalomalacia in the ri ght frontal lobe above the sylvian fissure. The sweeney and white matter appears normal and symmetrical for the patients age. There is no mass effe ct, extraaxial fluid collections or hydrocephalus. There is no gross bleed. There is no focal loss of sweeney-white matter distinction to suggest acute ischemia, i.e. stroke. Impression: Prior right-sided craniotomy. No acute findings. End impression PQRS Compliance Statement: One or more of the following individualized dose reduction techniques were utilized for this examinat ion: 1. Automated exposure control 2. Adjustment of the mA and/or kV according to patient size 3. Use of iterative reconstruction technique Electronically signed by: Addison Isaac III, MD (11/05/2020 2:08 AM) [facility]
[2020-11-05] MEDS ORDERED: ONDA4TAB7 PO (02:23)
[2020-11-05 02:27] VITALS: BP 145/86
== END 2020-11-05 02:55 | disposition home or self-care (01) ==
LOC: ER 22:47
DX: R42 Dizziness and giddiness (principal); R11.2 Nausea with vomiting, unspecified; E11.9 Type 2 diabetes mellitus without complications; I10 Essential (primary) hypertension; Z88.6 Allergy status to analgesic agent; Z88.8 Allergy status to other drugs, medicaments and biological substances
CPT/HCPCS: 36415; 70450; 80053; 81001; 81025; 85025; 93005; 96361; 96374; 99285; J2405; J7030

== ENCOUNTER → 2020-12-25 | Outpatient (CLI) | payer MEDICAID ==
[~2020-12-25] MED LIST changes: +DOXY100C2 PO; +FURO-69 PO; +ONDA4TAB7 PO
--- NOTE | 2020-12-25 12:51 | KCIC ---
EXAM: Pelvis and right hip, 2 views; right femur, 2 views. HISTORY: Pain. COMPARISON: None. FINDINGS: A frontal view of the pelvis and frog-leg view the right hip and 2 views of the right femur are obtained. There is no acute fracture, dislocation or subluxation. The right femoral head is norm al in configuration. There are incidental fallopian tube closure devices overlying the pelvis. There is degenerative change at the lumbosacral junction. There is sclerosis involving the distal femoral m etadiaphysis and proximal tibial metaphysis, the latter of which is partially excluded from the field -of-view. The imaging appearance favors osteonecrosis/bone infarction. There are right knee joint loo se bodies. There is medial compartment predominant right knee osteoarthritis. IMPRESSION: 1. Sclerotic changes within the distal right femoral metadiaphysis and suspected proximal tibial meta physis, the appearance of which favors osteonecrosis/bone infarction. 2. Mild osteoarthritis of the right knee and right knee joint loose bodies. The right knee is not for trupti assessed on this exam. 3. No acute osseous finding. Electronically signed by: Bhavya Hackett MD (12/25/2020 12:48 PM) [id number]
== END ==
LOC: KCIC 11:37
PROVIDERS: ATTEND Family Medicine
DX: M17.11 Unilateral primary osteoarthritis, right knee (principal); M23.41 Loose body in knee, right knee; M25.559 Pain in unspecified hip; M87.051 Idiopathic aseptic necrosis of right femur; Z68.34 Body mass index [BMI] 34.0-34.9, adult
CPT/HCPCS: 73501; 73552

== ENCOUNTER 2021-01-03 19:31 | Emergency (ER) | payer MEDICAID ==
[~2021-01-03] VITALS: Ht 152.4 cm; Wt 77.3 kg
[~2021-01-03 19:31] MED LIST changes: -DOXY100C2 PO; -FURO-69 PO
--- NOTE | 2021-01-03 22:27 | PHYS DOC ---
Past Medical History Past Medical History: Diabetes-Type II, Hypertension, Other Additional Past Medical Histor: BRAIN TUMORS, VASCULAR NECROSIS BX LEGS, "HOLE IN HEART" Past Surgical History: Cholecystectomy, Tubal ligation, Other Additional Past Surgical Histo: BRAIN TUMOR REMOVAL, BLADDER SURGERY, OVARIAN CYST Smoking Status: Never Smoker Alcohol Use: None General Adult EDM: Chief Complaint: MULTIPLE COMPLAINTS HPI: HPI: Patient is a 40 year [id number] female presents with a chief complaint of epigastric abdominal discomfort and diffuse swelling. Patient had a past surgical history of cholecystectomy. Patient states she has had right upper quadrant abdominal pain on and off since her cholecystectomy. Patient states over the last 2 days pain has been constant. Patient's pain does not radiate. She has had associated nausea but has not vomited also denies any diarrhea. Patient states pain feels similar to heartburn. Patient has been taking her acid reflux medications as prescribed. Patient also complains of feeling bloated and swelling in her legs and arms. Patient has a past medical history of H. pylori. Review of Systems: Review of Systems: Constitutional: Denies fever or chills. [] Eyes: Denies change in visual acuity. [] HENT: Denies nasal congestion or sore throat. [] Respiratory: Denies cough or shortness of breath. [] Cardiovascular: Denies chest pain or edema. [] GI: Positive abdominal pain, Positive nausea, no vomiting, bloody stools or diarrhea. [] : Denies dysuria. [] Musculoskeletal: Denies back pain or joint pain. [] Integument: Denies rash. [] Neurologic: Denies headache, focal weakness or sensory changes. [] Endocrine: Denies polyuria or polydipsia. [] Lymphatic: Denies swollen glands. [] Psychiatric: Denies depression or anxiety. [] Heart Score: C/O Chest Pain: N/A Risk Factors: Risk Factors: DM, Current or recent (<one month) smoker, HTN, HLP, family history of CAD, obesity. Risk Scores: Score 0 - 3: 2.5% MACE over next 6 weeks - Discharge Home Score 4 - 6: 20.3% MACE over next 6 weeks - Admit for Clinical Observation Score 7 - 10: 72.7% MACE over next 6 weeks - Early Invasive Strategies Allergies: Allergies: Allergies Coded Allergies Type Severity Reaction Last Updated Verified lorazepam Allergy Intermediate 07/28/19 Yes tramadol Allergy Intermediate 07/28/19 Yes Physical Exam: PE: Constitutional: Well developed, well nourished, no acute distress, non-toxic appearance. [] HENT: Normocephalic, atraumatic, bilateral external ears normal, oropharynx moist, no oral exudates, nose normal. [] Eyes: PERRLA, EOMI, conjunctiva normal, no discharge. [] Neck: Normal range of motion, no tenderness, supple, no stridor. [] Cardiovascular:Heart rate regular rhythm, no murmur [] Lungs & Thorax: Bilateral breath sounds clear to auscultation [] Abdomen: Bowel sounds normal, soft, no tenderness, no masses, no pulsatile masses. [] Skin: Warm, dry, no erythema, no rash. [] Back: No tenderness, no CVA tenderness. [] Extremities: No tenderness, no cyanosis, no clubbing, ROM intact, no edema. [] Neurologic: Alert and oriented X 3, normal motor function, normal sensory function, no focal deficits noted. [] Psychologic: Affect normal, judgement normal, mood normal. [] Current Patient Data: Labs: Laboratory Tests Test 01/03/21 19:41 POC Urine HCG, Qualitative Hcg negative (Negative) Vital Signs: Vital Signs Date Time Temp Pulse Resp B/P (MAP) Pulse Ox O2 Delivery O2 Flow Rate FiO2 01/03/21 19:55 98.4 85 16 136/105 (105) 99 Room Air 98.4 EKG: EKG: Performed at 2009 Rate 79 Normal sinus rhythm No ST elevation No ST depression No acute PR [] Radiology/Procedures: Radiology/Procedures: [] Course & Med Decision Making: Course & Med Decision Making Pertinent Labs and Imaging studies reviewed. (See chart for details) [] Patient was evaluated for chief complaint. Work-up consisted of laboratory analysis. Reviewed and discussed with patient. EKG without acute ischemic changes labs without acute abnormalities. Patient was treated with a GI cocktail and IV Pepcid. Patient states pain is somewhat improved but still persist. Patient's urine consistent with a urinary tract infection. Based upon physical exam and work-up do not believe the patient pain is cardiac related. Patient has a past medical history of cholecystectomy. Patient's liver enzymes are without acute abnormalities. Suspect GI cause. Patient does states she has a past medical history of H. pylori. Patient does state her primary care physician recommended an upper and lower GI. Patient will be placed on an antibiotic. Regarding patient's edema will place patient on Lasix for 7 days. Patient will need to evaluate if she has improvement. Patient does patient will need to follow-up with primary care physician if symptoms persist. Papa Disclaimer: Dragon Disclaimer: This electronic medical record was generated, in whole or in part, using a voice recognition dictation system. Departure Departure Impression: Primary Impression: Abdominal pain Additional Impressions: Edema Urinary tract infection Disposition: HOME / SELF CARE / HOMELESS Condition: STABLE Referrals: MATTIE ELIZABETH MD (PCP) Patient Instructions: Abdominal Pain, Edema, Urinary Tract Infection Scripts Furosemide (LASIX) 20 Mg Tablet 20 MG PO DAILY, #7 TAB Prov: SOPHY MTZ DO 01/04/21 Doxycycline Hyclate (DOXYCYCLINE HYCLATE) 100 Mg Capsule 1 CAP PO BID, #20 CAP Prov: SOPHY MTZ DO 01/04/21 SOPHY MTZ DO Jan 03, 2021 22:27
[2021-01-03] MEDS ORDERED: LIDO:MAALOX 1:1 20 ML SINGLE DOSE. PO PRN (22:45)
[2021-01-03] MEDS ORDERED: FAMOTIDINE 20 MG/2 ML VIAL IVP ONE (22:45)
[2021-01-03 23:13] LABS: BASO % 1 % (0-3); EOS # 0.1 x10^3/uL (0.0-0.7); EOS % 2 % (0-3); HEMATOCRIT 38.9 % (36.0-47.0); LYMPH # 2.2 x10^3/uL (1.0-4.8); LYMPH % 33 % (24-48); MEAN CORPUSCULAR HEMOGLOBIN 30 pg (25-35); MEAN CORPUSCULAR HGB CONC 33 g/dL (31-37); MEAN CORPUSCULAR VOLUME 89 fL (79-100); MONO # 0.6 x10^3/uL (0.0-1.1); MONO % 9 % (0-9); NEUT # 3.7 x10^3/uL (1.8-7.7); NEUT % 55 % (31-73); PLATELET COUNT 268 x10^3/uL (140-400); RED BLOOD COUNT 4.37 x10^6/uL (3.50-5.40); RED CELL DISTRIBUTION WIDTH 13.6 % (11.5-14.5); WHITE BLOOD COUNT 6.6 x10^3/uL (4.0-11.0)
[2021-01-03 23:19] LABS: CALCIUM 8.7 mg/dL (8.5-10.1); CREATININE 0.9 mg/dL (0.6-1.0); GFR 68.7; POTASSIUM 4.1 mmol/L (3.5-5.1)
[2021-01-03 23:22] LABS: BILIRUBIN,URINE NEGATIVE (NEG); CLARITY,URINE CLOUDY; COLOR,URINE YELLOW; NITRITE,URINE NEGATIVE (NEG); PROTEIN,URINE NEGATIVE (NEG-TRACE); UROBILINOGEN,URINE 0.2 mg/dL (0.2 mg/dL)
[2021-01-03 23:25] LABS: ALBUMIN 3.1 g/dL (3.4-5.0); ALBUMIN/GLOBULIN RATIO 0.7 (1.0-1.7); TOTAL BILIRUBIN 0.3 mg/dL (0.2-1.0); TOTAL PROTEIN 7.3 g/dL (6.4-8.2)
[2021-01-03 23:30] LABS: BACTERIA,URINE FEW /HPF (0-FEW); RBC,URINE 0 /HPF (0-2)
[2021-01-04] MEDS ORDERED: DOXY100C2 PO (00:29)
[2021-01-04] MEDS ORDERED: FURO-69 PO (00:30)
[2021-01-04 00:38] VITALS: BP 141/67
== END 2021-01-04 00:44 | disposition home or self-care (01) ==
LOC: ER 19:31
DX: N39.0 Urinary tract infection, site not specified (principal); R60.0 Localized edema; E11.9 Type 2 diabetes mellitus without complications; I10 Essential (primary) hypertension; Z90.49 Acquired absence of other specified parts of digestive tract; Z98.51 Tubal ligation status; Z98.890 Other specified postprocedural states; Z88.6 Allergy status to analgesic agent; Z88.8 Allergy status to other drugs, medicaments and biological substances
CPT/HCPCS: 36415; 80053; 81001; 81025; 83690; 83880; 85025; 87086; 96374; 99285; J3490